=== PATIENT | female | born 1985 | race African-American/Black ===

== ENCOUNTER 2021-02-19 13:55 | Inpatient (IN) | payer OTHER ==
[2021-02-19 15:47] VITALS: BMI 38.3
[2021-02-19] MEDS ORDERED: METHOCARBAMOL 500 MG TABLET PO PRN (16:29)
[2021-02-19] MEDS ORDERED: ONDANSETRON *ODT* 4 MG TABLET SL PRN (16:29)
[2021-02-19] MEDS ORDERED: MAGNESIUM HYDROX 2400MG/30ML ORAL SUSPENSION 30 ML CUP PO PRN (16:29)
[2021-02-19] MEDS ORDERED: MAG HYDROX/AL HYDROX/SIMETH 30 ML UNIT-DOSE CUP PO PRN (16:29)
[2021-02-19] MEDS ORDERED: BISMUTH SUBSALICYLATE 524 MG/30 ML PO PRN (16:29)
[2021-02-19] MEDS ORDERED: LORazepam 1 MG TABLET PO PRN (16:29)
[2021-02-19] MEDS ORDERED: IBUPROFEN 400 MG TABLET (FP) PO PRN (16:29)
[2021-02-19] MEDS ORDERED: MAGNESIUM CITRATE 300 ML BOTTLE PO PRN (16:29)
[2021-02-19] MEDS ORDERED: MENTHOL/PHENOL 1 EACH UD MM PRN (16:29)
[2021-02-19] MEDS ORDERED: ACETAMINOPHEN 325 MG TABLET (FP) PO PRN ×2 (16:29)
[2021-02-19] MEDS: LORazepam 2 MG TABLET PO SCH ×2 (17:33→22:10)
[2021-02-19] MEDS: hydrOXYzine PAMOATE 25 MG CAPSULE (FP) PO SCH ×2 (17:38→22:09)
[2021-02-19] MEDS: MELATONIN 5 MG TABLETS PO SCH (22:09)
[2021-02-19] MEDS: THIAMINE HCL 100 MG TABLET (FP) PO SCH (22:09)
[2021-02-19] MEDS: BACITRACIN 0.9 GM PACKET TP SCH (22:09)
[2021-02-20] MEDS: LORazepam 2 MG TABLET PO SCH ×4 (06:00→22:15)
[2021-02-20] MEDS ORDERED: LEVOTHYROXINE NA 100 MCG TABLET (FP) ONE ×2 (06:10→06:11)
[2021-02-20] MEDS ORDERED: LEVOTHYROXINE NA 25 MCG TABLET (FP) ONE (06:10)
[2021-02-20] MEDS: LEVOTHYROXINE 100 MCG, LEVOTHYROXINE 75 MCG PO SCH (06:32)
[2021-02-20] MEDS: hydrOXYzine PAMOATE 25 MG CAPSULE (FP) PO SCH ×5 (06:33→22:15)
[2021-02-20] MEDS ORDERED: PATIENT'S OWN MEDICATION (NON-FORMULARY) (Levothyroxine Sodium [Levothyroxine] 175 MCG Cap PO SCH (10:00)
[2021-02-20] MEDS: BACITRACIN 0.9 GM PACKET TP SCH ×2 (11:00→22:16)
[2021-02-20] MEDS: PRENATAL VITAMINS W/ FOLIC ACID TABLET (FP) PO SCH (11:00)
[2021-02-20 13:51] LABS: HEMATOCRIT 28.9 % (32.4-45.2); HEMOGLOBIN 9.6 GM/dL (10.7-15.3); MCH 32.7 pg (25.7-33.7); MCHC 33.4 g/dl (32.0-36.0); MEAN CELL VOLUME 97.9 fl (80-96); MEAN PLT VOLUME 8.5 fl (7.5-11.1); PLATELET COUNT 225 10^3/uL (134-434); RBC 2.95 M/mm3 (3.60-5.2); RDW 15.4 % (11.6-15.6); WHITE BLOOD COUNT 3.7 K/mm3 (4.0-10.0)
[2021-02-20 14:06] LABS: ALBUMIN 2.4 g/dl (3.4-5.0); BLOOD UREA NITROGEN 8.3 mg/dL (7-18); CALCIUM 7.9 mg/dL (8.5-10.1)
[2021-02-20 14:08] LABS: CREATININE 0.8 mg/dL (0.55-1.3)
[2021-02-20 14:10] LABS: BILIRUBIN,TOTAL 1.3 mg/dL (0.2-1); TOT PROT 8.5 g/dl (6.4-8.2)
[2021-02-20] MEDS: traZODone HCL 100 MG TABLET (FP) PO SCH (22:15)
[2021-02-20] MEDS: MELATONIN 5 MG TABLETS PO SCH (22:17)
[2021-02-20] MEDS: THIAMINE HCL 100 MG TABLET (FP) PO SCH (22:49)
[2021-02-21] MEDS ORDERED: LEVOTHYROXINE NA 25 MCG TABLET (FP) ONE (04:28)
[2021-02-21] MEDS ORDERED: LEVOTHYROXINE NA 100 MCG TABLET (FP) ONE (04:29)
[2021-02-21] MEDS: LORazepam 1 MG TABLET PO SCH ×4 (05:55→22:23)
[2021-02-21] MEDS: hydrOXYzine PAMOATE 25 MG CAPSULE (FP) PO SCH ×5 (05:55→22:23)
[2021-02-21] MEDS: LEVOTHYROXINE 100 MCG, LEVOTHYROXINE 75 MCG PO SCH (05:59)
[2021-02-21] MEDS: PRENATAL VITAMINS W/ FOLIC ACID TABLET (FP) PO SCH (10:47)
[2021-02-21] MEDS: BACITRACIN 0.9 GM PACKET TP SCH ×2 (10:47→22:23)
[2021-02-21 16:29] LABS: IRON SERUM 263 ug/dL (50-175); TOTAL IRON BINDING CAPACITY 309 ug/dL (250-450)
[2021-02-21] MEDS: MELATONIN 5 MG TABLETS PO SCH (22:23)
[2021-02-21] MEDS: traZODone HCL 100 MG TABLET (FP) PO SCH (22:23)
[2021-02-21] MEDS: THIAMINE HCL 100 MG TABLET (FP) PO SCH (22:25)
[2021-02-21] MEDS: NEOMYCIN/POLYMYXIN/HC TOPICAL CREAM 7.5 GM TUBE TP SCH (23:14)
[2021-02-22] MEDS ORDERED: LORazepam 0.5 MG TABLET PO PRN
[2021-02-22] MEDS ORDERED: LEVOTHYROXINE NA 25 MCG TABLET (FP) ONE (04:26)
[2021-02-22] MEDS ORDERED: LEVOTHYROXINE NA 100 MCG TABLET (FP) ONE (04:26)
[2021-02-22] MEDS: hydrOXYzine PAMOATE 25 MG CAPSULE (FP) PO SCH ×2 (05:21→10:00)
[2021-02-22] MEDS: LORazepam 0.5 MG TABLET PO SCH ×4 (05:22→22:25)
[2021-02-22] MEDS: LEVOTHYROXINE 100 MCG, LEVOTHYROXINE 75 MCG PO SCH (06:38)
[2021-02-22] MEDS: PRENATAL VITAMINS W/ FOLIC ACID TABLET (FP) PO SCH (10:01)
[2021-02-22] MEDS: BACITRACIN 0.9 GM PACKET TP SCH ×2 (10:01→22:25)
[2021-02-22] MEDS: NEOMYCIN/POLYMYXIN/HC TOPICAL CREAM 7.5 GM TUBE TP SCH (10:04)
[2021-02-22] MEDS ORDERED: hydrOXYzine PAMOATE 50 MG CAPSULE (FP) PO PRN (10:59)
[2021-02-22] MEDS ORDERED: HYDROCORTISONE 1% TOPICAL CREAM 30 GM TUBE TP PRN (15:20)
[2021-02-22] MEDS: MELATONIN 5 MG TABLETS PO SCH (22:25)
[2021-02-22] MEDS: THIAMINE HCL 100 MG TABLET (FP) PO SCH (22:25)
[2021-02-22] MEDS: traZODone HCL 100 MG TABLET (FP) PO SCH (22:25)
[2021-02-23] MEDS ORDERED: LEVOTHYROXINE NA 25 MCG TABLET (FP) ONE (04:23)
[2021-02-23] MEDS ORDERED: LEVOTHYROXINE NA 100 MCG TABLET (FP) ONE (04:23)
[2021-02-23] MEDS ORDERED: LORazepam 0.5 MG TABLET PO ONE (05:00)
[2021-02-23] MEDS: LEVOTHYROXINE 100 MCG, LEVOTHYROXINE 75 MCG PO SCH (06:23)
[2021-02-23 09:28] VITALS: BP 118/81; PULSE 106; TEMP 98.4
[2021-02-23] MEDS: PRENATAL VITAMINS W/ FOLIC ACID TABLET (FP) PO SCH (10:12)
[2021-02-23] MEDS: BACITRACIN 0.9 GM PACKET TP SCH (10:13)
== END 2021-02-23 11:10 | disposition home or self-care (01) | DRG 775 ==
LOC: YASAS 13:55 → Y6N 16:16
PROVIDERS: ADMIT Allergy & Immunology; ATTEND Allergy & Immunology
PROC: HZ2ZZZZ Detoxification Services for Substance Abuse Treatment (ICD-10-PCS; principal; 2021-02-19)
DX: F10.230 Alcohol dependence with withdrawal, uncomplicated (principal); F10.24 Alcohol dependence with alcohol-induced mood disorder; F10.220 Alcohol dependence with intoxication, uncomplicated; F42.4 Excoriation (skin-picking) disorder; F41.8 Other specified anxiety disorders; F32.A Depression, unspecified; E89.0 Postprocedural hypothyroidism; R74.01 Elevation of levels of liver transaminase levels; Z86.19 Personal history of other infectious and parasitic diseases; Z98.84 Bariatric surgery status
CPT/HCPCS: 36415; 80053; 81025; 82607; 83540; 83550; 85027; 86593; 86780; 93005; 93010; C9803; U0003; U0005